=== PATIENT | male | born 1995 | race Caucasian/White ===

== ENCOUNTER 2017-01-21 20:37 | Emergency (ER) | payer BC, OTHER ==
[~2017-01-21] VITALS: Ht 182.9 cm; Wt 85.3 kg
[2017-01-21 20:47] VITALS: BP 111/75
--- NOTE | 2017-01-21 20:47 | PHYS DOC ---
Past History Past Medical History: No Pertinent History Past Surgical History: No Surgical History Smoking: Cigarettes Alcohol Use: Occasionally Drug Use: None Adult General Chief Complaint Chief Complaint: COUGH HPI HPI Patient is a 22 year old male who presents with sore throat and cough. The cough was today sore throat was just prior to arrival. States her hurts to swallow. No drooling however. No known fever. He does smoke tobacco. No Recent travel. Review of Systems Review of Systems Constitutional: Denies fever or chills Eyes: Denies change in visual acuity, redness, or eye pain HENT: sinus drainage and sore throat. No change in voice Respiratory: non productive cough but no shortness of breath Cardiovascular: no chest pain GI: Denies abdominal pain, nausea, vomiting, bloody stools or diarrhea : Denies dysuria or hematuria Musculoskeletal: Denies back pain or joint pain Integument: Denies rash or skin lesions Neurologic: Denies headache, focal weakness or sensory changes Allergies Allergies Allergies Coded Allergies Type Severity Reaction Last Updated Verified No Known Drug Allergies 02/11/16 No Physical Exam Physical Exam Constitutional: Well developed, well nourished, no acute distress, non-toxic appearance. HENT: Normocephalic, atraumatic, bilateral external ears normal, oropharynx moist, tonsillar hypertrophy; no exudate but diffuse erythema. nose normal. Eyes: PERRLA, EOMI, conjunctiva normal, no discharge. Neck: Normal range of motion, no tenderness, supple, no stridor. Cervical adenopathy; min. tenderness. No fluctuance or masses. Cardiovascular:Heart rate regular rhythm, no murmur Lungs & Thorax: Bilateral breath sounds clear to auscultation Skin: Warm, dry, no erythema, no rash. Extremities: No tenderness, no cyanosis, no clubbing, ROM intact, no edema. Neurologic: Alert and oriented X 3, normal motor function, normal sensory function, no focal deficits noted. Psychologic: Affect normal, judgement normal, mood normal. Current Patient Data Vital Signs BP 111/75, P 71, sat 98%, T 97.9 Course & Med Decision Making Course & Med Decision Making Patient with hyperemic tonsils and hypertrophy. Will cover for strep. Khoaon Disclaimer Khoaon Disclaimer This chart was dictated in whole or in part using Voice Recognition software in a busy, high-work load, and often noisy Emergency Department environment. It may contain unintended and wholly unrecognized errors or omissions. Departure Departure: Impression: Primary Impression: Pharyngitis Additional Impression: Cough Disposition: 01 HOME, SELF-CARE Condition: GOOD Referrals: PCP,NO (PCP) Scripts Amoxicillin (AMOXICILLIN) 500 Mg Capsule 1 CAP PO TID, #30 CAP Prov: MARILUZ NEGRETE MD 01/21/17 Problem Qualifiers MARILUZ NEGRETE MD January 21, 2017 20:47
[2017-01-21] MEDS ORDERED: AMOX500C PO (21:00)
== END 2017-01-21 21:07 | disposition home or self-care (01) ==
LOC: ER 20:37
DX: J02.9 Acute pharyngitis, unspecified (principal); R05 Cough; F17.210 Nicotine dependence, cigarettes, uncomplicated
CPT/HCPCS: 99283

== ENCOUNTER 2017-02-01 02:54 | Emergency (ER) | payer BC, OTHER ==
[~2017-02-01] VITALS: Ht 182.9 cm; Wt 81.6 kg
[~2017-02-01 02:54] MED LIST: AMOX500C PO
[2017-02-01 03:00] VITALS: BP 131/71
[2017-02-01] MEDS ORDERED: FLUT9.9S NS (03:20)
[2017-02-01] MEDS ORDERED: GUAI1TBM10 PO (03:20)
[2017-02-01] MEDS ORDERED: AZIT250T6 PO (03:20)
--- NOTE | 2017-02-01 03:20 | PHYS DOC ---
Past History Additional Past Medical Histor: ADHD, ADD, aspiration syndrome, OCD Past Surgical History: No Surgical History Smoking: Cigarettes Alcohol Use: None Drug Use: None Adult General Chief Complaint Chief Complaint: EARACHE/EAR PAIN [facility] HPI Patient is a pleasant 22-year-old male with history of smoking less than a pack a day, ADHD, ADD and aspiration no OCD who presents with 3-4 history of decreased hearing out of the right ear. He notes over the last several weeks has had a nonproductive cough with rhinorrhea. Who has developed some decreased hearing out of the right ear without drainage but has had some pressure. He admits to no nasal facial pain but has had clear nasal discharge. Patient denies any fevers, headache, neck pain, recent trauma, travel outside the country, or recent antibiotics. Patient does not have any reported trauma to the ear does not swim or report any complete hearing loss. Patient also denies any nausea vomiting or sensory spinning. Review of Systems Review of Systems Constitutional: Denies fever or chills [] Eyes: Denies change in visual acuity, redness, or eye pain [] HENT: He denies sore throat but has complained of nasal congestion and right ear pain. Respiratory: Planes of cough Cardiovascular: No additional information not addressed in HPI [] GI: Denies abdominal pain, nausea, vomiting, bloody stools or diarrhea [] : Denies dysuria or hematuria [] Musculoskeletal: Denies back pain or joint pain [] Integument: Denies rash or skin lesions [] Neurologic: Denies headache, focal weakness or sensory changes [] Allergies Allergies Allergies Coded Allergies Type Severity Reaction Last Updated Verified No Known Drug Allergies 02/11/16 No Physical Exam Physical Exam Constitutional: Well developed, well nourished, no acute distress, non-toxic appearance. [] HENT: Normocephalic, atraumatic, bilateral external ears normal, oropharynx moist, no oral exudates, clear nasal discharge. Noted serous otitis media with bulging eardrum on the right when hearing tested patient still has negative Guo's test. Eyes: PERRLA, EOMI, conjunctiva normal, no discharge. [] Neck: Normal range of motion, no tenderness, supple, no stridor. [] Cardiovascular:Heart rate regular rhythm, no murmur [] Lungs & Thorax: Bilateral breath sounds clear to auscultation [] Skin: Warm, dry, no erythema, no rash. [] Neurologic: Alert and oriented X 3, normal motor function, normal sensory function, no focal deficits noted. [] Psychologic: Affect normal, judgement normal, mood normal. [] EKG EKG [] Radiology/Procedures Radiology/Procedures [] Course & Med Decision Making Course & Med Decision Making Pertinent Labs and Imaging studies reviewed. (See chart for details) [] Dragon Disclaimer Dragon Disclaimer This chart was dictated in whole or in part using Voice Recognition software in a busy, high-work load, and often noisy Emergency Department environment. It may contain unintended and wholly unrecognized errors or omissions. Departure Departure: Impression: Primary Impression: Otitis media Disposition: HOME, SELF-CARE Condition: STABLE Referrals: PCP,NO (PCP) Patient Instructions: Hearing Loss, Otitis Media, Adult Additional Instructions: Please follow-up with your primary care doctor in the next 12-24 hours if symptoms continue. Please return for any increasing pain or drainage from the ear or increased hearing loss despite treatment. Please stop smoking if he can. I would advise that you follow-up with your primary care doctor to help with your smoking cessation issues. Scripts Guaifenesin/Dextromethorphan (MUCINEX DM ER 1,200-60 MG TAB) 1 Each Tbmp.12hr 1 TAB PO BID, #20 TAB 1 Refill Prov: MINGO CARMICHAEL MD 02/01/17 Fluticasone Propionate (Flonase Allergy Relief) 9.9 Ml [place].susp 2 SPRAYS NS DAILY for 7 Days, BOTTLE Prov: MINGO CARMICHAEL MD 02/01/17 Azithromycin (AZITHROMYCIN TABLET) 250 Mg Tablet 250 MG PO DAILY for ANTI-BIOTIC for 5 Days, #5 TAB 0 Refills Please take 2 times the first day Please take one tablet day 2 through 5. Prov: MINGO CARMICHAEL MD 02/01/17 IMNGO CAMRICHAEL MD February 01, 2017 03:20
[2017-02-01] MEDS ORDERED: guaiFENesin DM 600/30MG 1 TAB TAB.ER.12H PO ONE (03:28)
[2017-02-01] MEDS ORDERED: AZITHROMYCIN 250 MG TABLET. PO ONE (04:00)
[2017-02-01] MEDS ORDERED: guaiFENesin DM 600/30MG 1 TAB TAB.ER.12H PO SCH (09:00)
== END 2017-02-01 03:33 | disposition home or self-care (01) ==
LOC: ER 02:54
DX: H66.91 Otitis media, unspecified, right ear (principal); F42.9 Obsessive-compulsive disorder, unspecified; F90.9 Attention-deficit hyperactivity disorder, unspecified type; F17.210 Nicotine dependence, cigarettes, uncomplicated
CPT/HCPCS: 99283; J0456

== ENCOUNTER 2017-02-09 21:32 | Emergency (ER) | payer BC, OTHER ==
[~2017-02-09] VITALS: Ht 182.9 cm; Wt 81.6 kg
[2017-02-09 21:32] VITALS: BP 111/61
[~2017-02-09 21:32] MED LIST changes: +AZIT250T6 PO; +FLUT9.9S NS; +GUAI1TBM10 PO
[2017-02-09] MEDS ORDERED: PRED50TA PO (22:20)
--- NOTE | 2017-02-09 22:23 | PHYS DOC ---
Past History Additional Past Medical Histor: ADHD, ADD, aspiration syndrome, OCD Past Surgical History: Other Smoking: Cigarettes Alcohol Use: Rarely Drug Use: None Adult General Chief Complaint Chief Complaint: FOOT INJURY PAIN HPI HPI Patient is a 22 year old male who presents with poison dick to his left foot on the top. Patient states he's had increased itching and a rash to the top of his foot for the past day. Patient states he does walk outside barefoot in his backyard and has had poison dick present. Patient denies any other symptoms. Patient denies any chest pain shortness of breath. Patient denies any fevers. Pertinent exam findings: Vesicular rash to the top of the left foot consistent with a contact dermatitis ED course: Patient was seen and evaluated and 10 mg Decadron IM were ordered and patient was discharged home with a prescription for prednisone MDM: After reviewing the chart, CC/HPI/PMH, physical exam, do not believe the patient has a life-threatening rash warranting further workup and/or admission at this time. I believe the patient's visit exam is consistent with poison dick and will give the patient shot of steroids in the emergency room send him home on a short course of steroids. Explained to the patient to watch for signs of infection and to follow-up with his family and next one to 2 days. She is stable for discharge Additional verbal discharge instructions were provided to the patient and that if symptoms get worse or any new symptoms arise that are worrisome to the patient he is to return to the emergency room immediately Review of Systems Review of Systems GEN: Denies fevers, chills, sweats HEENT: Denies blurred vision, sore throat CV: Denies chest pain RESP: Denies shortness of air, cough GI: Denies n/v/d NEURO: Denies confusion, dizziness MSK: Denies weakness, joint pain/swelling Skin: Rash to the top the left foot Allergies Allergies Allergies Coded Allergies Type Severity Reaction Last Updated Verified No Known Drug Allergies 02/11/16 No Physical Exam Physical Exam GEN.: No apparent distress. Alert and oriented. HEENT: Head is normocephalic, atraumatic NECK: Supple. LUNGS: CTAB. HEART: RRR, S1, S2 present. Peripheral pulses intact ABDOMEN: Soft, nontender. Positive bowel sounds. EXTREMITIES: Without any cyanosis. NEUROLOGIC: Normal speech, normal tone PSYCHIATRIC: Normal affect, normal mood. SKIN: Vesicular rash to the top of the left foot consistent with a contact dermatitis EKG EKG [] Radiology/Procedures Radiology/Procedures [] Course & Med Decision Making Course & Med Decision Making Pertinent Labs and Imaging studies reviewed. (See chart for details) [] Dragon Disclaimer Dragon Disclaimer This chart was dictated in whole or in part using Voice Recognition software in a busy, high-work load, and often noisy Emergency Department environment. It may contain unintended and wholly unrecognized errors or omissions. Departure Departure: Impression: Primary Impression: Poison dick dermatitis Disposition: HOME, SELF-CARE Condition: IMPROVED Referrals: PCP,FLY (PCP) Patient Instructions: Contact Dermatitis, [id number] Additional Instructions: Please follow up with her family doctor next 1-2 days, please wash all clothes Scripts Prednisone (PREDNISONE) 50 Mg Tablet 50 MG PO DAILY for 5 Days, #5 TAB Prov: HEMA GUTIÉRREZ DO 02/09/17 HEMA GUTIÉRREZ DO Feb 09, 2017 22:23
[2017-02-09] MEDS ORDERED: DEXAMETHASONE SOD PHOS 10 MG/ML VIAL IM ONE (22:30)
== END 2017-02-09 22:27 | disposition home or self-care (01) ==
LOC: ER 21:32
DX: L23.7 Allergic contact dermatitis due to plants, except food (principal); F42.9 Obsessive-compulsive disorder, unspecified; F17.210 Nicotine dependence, cigarettes, uncomplicated; F90.9 Attention-deficit hyperactivity disorder, unspecified type
CPT/HCPCS: 96372; 99283; J1100

== ENCOUNTER → 2017-02-10 | Outpatient (CLI) | payer BC, OTHER ==
[2017-02-09 21:32] VITALS: BP 111/61
[~2017-02-10] MED LIST changes: +PRED50TA PO
--- NOTE | 2017-02-10 10:04 | RAD ---
Indication lower abdominal pain. Diarrhea. Supine and upright films of the abdomen were obtained. The abdominal gas pattern is normal. No organomegaly or abnormal calculi are seen. There is no evidence of free air. The lung bases are clear. IMPRESSION: Normal plain films of the abdomen
== END | disposition home or self-care (01) ==
LOC: DXRADRC 09:31
PROVIDERS: ATTEND Physician Assistant
DX: R10.30 Lower abdominal pain, unspecified (principal); R19.7 Diarrhea, unspecified
CPT/HCPCS: 74020

== ENCOUNTER → 2017-02-12 | Outpatient (CLI) | payer BC, OTHER ==
[2017-02-09 21:32] VITALS: BP 111/61
--- NOTE | 2017-02-12 10:17 | RAD ---
Abdominal ultrasound, 02/12/2017: History: Abdominal pain and diarrhea The gallbladder is within normal limits in size. There is no sonographic evidence of cholelithiasis. The gallbladder pemberton are not thickened. No bile duct dilatation is seen. The visualized portions of the liver, pancreas and both kidneys are unremarkable. The spleen is at the upper limits of normal in size measuring 13.7 cm in craniocaudad extent. A similar appearance was present on the CT study of 10/31/2016. The abdominal aorta and inferior vena cava show no abnormality. No free fluid is evident in the abdomen. IMPRESSION: 1. Borderline splenomegaly. 2. The abdominal ultrasound is otherwise unremarkable.
== END | disposition home or self-care (01) ==
LOC: US 08:57
PROVIDERS: ATTEND Physician Assistant
DX: R10.9 Unspecified abdominal pain (principal); R19.7 Diarrhea, unspecified; R16.1 Splenomegaly, not elsewhere classified
CPT/HCPCS: 76700

== ENCOUNTER 2017-03-01 00:23 | Emergency (ER) | payer BC, OTHER ==
[~2017-03-01] VITALS: Ht 182.9 cm; Wt 78.9 kg
[2017-03-01 00:25] VITALS: BP 140/73
--- NOTE | 2017-03-01 00:41 | PHYS DOC ---
Past History Past Medical History: Asthma, Other Additional Past Medical Histor: ADHD, ADD, Asperger's syndrome, OCD Past Surgical History: Other Smoking: Cigarettes Alcohol Use: Rarely Drug Use: None Adult General Chief Complaint Chief Complaint: ABDOMINAL PAIN [facility] HPI Impression is a pleasant 22-year-old male with history of Orla syndrome, OCD and ADHD presents with abdominal pain is plaguing him for the last 4 weeks. The pain is described as crampy dull and achy in the left lower right lower quadrants that typically begins after he eats food. He describes as cramping that does not radiate to his back or his legs does not cause any pain with urination, penile discharge or constipation. He typically has loose stool. He says he has about 6-8 episodes a day he has not lost any weight with the stool and he has not had any blood in his stool. He denies any sick contacts, travel outside the country, recent anabiotic use, or prior history of the same. He does tell me that he's been under the care of a GI PA he has not had a colonoscopy or EGD despite having symptoms for last 4 weeks. He denies any night sweats, denies any consumption of raw foods like oysters or raw fish. He also denies handling poultry or reptiles. Patient was at work type for symptoms began becoming so severe that he had come to the ER. He drove himself. Review of Systems Review of Systems Constitutional: Denies fever or chills [] Eyes: Denies change in visual acuity, redness, or eye pain [] HENT: Denies nasal congestion or sore throat [] Respiratory: Denies cough or shortness of breath [] Cardiovascular: No additional information not addressed in HPI [] GI: He does complain of abdominal pain with nausea without vomiting complains of diarrhea without blood or mucus in the stool. : Denies dysuria or hematuria [] Musculoskeletal: Denies back pain or joint pain [] Integument: Denies rash or skin lesions [] Neurologic: Denies headache, focal weakness or sensory changes [] Endocrine: Denies polyuria or polydipsia [] Current Medications Current Medications Current Medications Medications (Trade) Dose Ordered Sig/Vicki Start Time Stop Time Status Last Admin Dose Admin Famotidine (Pepcid) 20 mg 1X ONCE 03/01/17 00:30 03/01/17 00:31 UNV Ketorolac Tromethamine (Toradol) 30 mg 1X ONCE 03/01/17 00:30 03/01/17 00:31 UNV Ondansetron HCl (Zofran) 4 mg 1X ONCE 03/01/17 00:30 03/01/17 00:31 UNV Sodium Chloride (Normal Saline Flush) 10 ml QSHIFT PRN 03/01/17 00:30 UNV Allergies Allergies Allergies Coded Allergies Type Severity Reaction Last Updated Verified No Known Drug Allergies 02/11/16 No Physical Exam Physical Exam Constitutional: Well developed, well nourished, a shows obvious anxious and uncomfortable but nontoxic in appearance HENT: Normocephalic, atraumatic, bilateral external ears normal, oropharynx moist, no oral exudates, nose normal. [] Eyes: PERRLA, EOMI, conjunctiva normal, no discharge. [] Neck: Normal range of motion, no tenderness, supple, no stridor. [] Cardiovascular:Heart rate regular rhythm, no murmur [] Lungs & Thorax: Bilateral breath sounds clear to auscultation [] Abdomen: Bowel sounds are reduced but his abdomen is soft he does have some tenderness in the right left lower quadrant. There is no guarding rebound organomegaly or McBurney's or Hirsch's tenderness to palpation Skin: Warm, dry, no erythema, no rash. [] Back: No tenderness, no CVA tenderness. [] Extremities: No tenderness, no cyanosis, no clubbing, ROM intact, no edema. [] Neurologic: Alert and oriented X 3, normal motor function, normal sensory function, no focal deficits noted. [] Psychologic: He seems anxious to me Current Patient Data Lab Results Laboratory Tests Test 03/01/17 00:40 White Blood Count 12.2 x10^3/uL (4.0-11.0) H Red Blood Count 5.78 x10^6/uL (4.30-5.70) H Hemoglobin 16.6 g/dL (13.0-17.5) Hematocrit 47.2 % (39.0-53.0) Mean Corpuscular Volume 82 fL (79-100) Mean Corpuscular Hemoglobin 29 pg (25-35) Mean Corpuscular Hemoglobin Concent 35 g/dL (31-37) Red Cell Distribution Width 13.0 % (11.5-14.5) Platelet Count 201 x10^3/uL (140-400) Neutrophils (%) (Auto) 61 % (31-73) Lymphocytes (%) (Auto) 29 % (24-48) Monocytes (%) (Auto) 7 % (0-9) Eosinophils (%) (Auto) 3 % (0-3) Basophils (%) (Auto) 1 % (0-3) Neutrophils # (Auto) 7.4 x10^3uL (1.8-7.7) Lymphocytes # (Auto) 3.5 x10^3/uL (1.0-4.8) Monocytes # (Auto) 0.8 x10^3/uL (0.0-1.1) Eosinophils # (Auto) 0.4 x10^3/uL (0.0-0.7) Basophils # (Auto) 0.1 x10^3/uL (0.0-0.2) Sodium Level 141 mmol/L (136-145) Potassium Level 3.5 mmol/L (3.5-5.1) Chloride Level 103 mmol/L (98-107) Carbon Dioxide Level 25 mmol/L (21-32) Anion Gap 13 (6-14) Blood Urea Nitrogen 10 mg/dL (8-26) Creatinine 0.9 mg/dL (0.7-1.3) Estimated GFR (Cockcroft-Gault) 103.7 BUN/Creatinine Ratio 11 (6-20) Glucose Level 104 mg/dL (70-99) H Calcium Level 9.2 mg/dL (8.5-10.1) Total Bilirubin 0.5 mg/dL (0.2-1.0) Aspartate Amino Transferase (AST) < 5 U/L (15-37) L Alanine Aminotransferase (ALT) 9 U/L (16-63) L Alkaline Phosphatase 51 U/L (46-116) Total Protein 8.2 g/dL (6.4-8.2) Albumin 4.8 g/dL (3.4-5.0) Albumin/Globulin Ratio 1.4 (1.0-1.7) Lipase 117 U/L (73-393) Laboratory Tests Test 03/01/17 00:40 White Blood Count 12.2 x10^3/uL (4.0-11.0) H Red Blood Count 5.78 x10^6/uL (4.30-5.70) H Hemoglobin 16.6 g/dL (13.0-17.5) Hematocrit 47.2 % (39.0-53.0) Mean Corpuscular Volume 82 fL (79-100) Mean Corpuscular Hemoglobin 29 pg (25-35) Mean Corpuscular Hemoglobin Concent 35 g/dL (31-37) Red Cell Distribution Width 13.0 % (11.5-14.5) Platelet Count 201 x10^3/uL (140-400) Neutrophils (%) (Auto) 61 % (31-73) Lymphocytes (%) (Auto) 29 % (24-48) Monocytes (%) (Auto) 7 % (0-9) Eosinophils (%) (Auto) 3 % (0-3) Basophils (%) (Auto) 1 % (0-3) Neutrophils # (Auto) 7.4 x10^3uL (1.8-7.7) Lymphocytes # (Auto) 3.5 x10^3/uL (1.0-4.8) Monocytes # (Auto) 0.8 x10^3/uL (0.0-1.1) Eosinophils # (Auto) 0.4 x10^3/uL (0.0-0.7) Basophils # (Auto) 0.1 x10^3/uL (0.0-0.2) Sodium Level 141 mmol/L (136-145) Potassium Level 3.5 mmol/L (3.5-5.1) Chloride Level 103 mmol/L (98-107) Carbon Dioxide Level 25 mmol/L (21-32) Anion Gap 13 (6-14) Blood Urea Nitrogen 10 mg/dL (8-26) Creatinine 0.9 mg/dL (0.7-1.3) Estimated GFR (Cockcroft-Gault) 103.7 BUN/Creatinine Ratio 11 (6-20) Glucose Level 104 mg/dL (70-99) H Calcium Level 9.2 mg/dL (8.5-10.1) Total Bilirubin 0.5 mg/dL (0.2-1.0) Aspartate Amino Transferase (AST) < 5 U/L (15-37) L Alanine Aminotransferase (ALT) 9 U/L (16-63) L Alkaline Phosphatase 51 U/L (46-116) Total Protein 8.2 g/dL (6.4-8.2) Albumin 4.8 g/dL (3.4-5.0) Albumin/Globulin Ratio 1.4 (1.0-1.7) Lipase 117 U/L (73-393) EKG EKG [] Radiology/Procedures Radiology/Procedures [address] [place] [id number] IMAGING REPORT Signed PATIENT: YAS MENDEZ ACCOUNT: [id number] : 1995 LOCATION: ER AGE: 22 SEX: M EXAM STATUS: REG ER ORD. PHYSICIAN: MINGO CARMICHAEL MD REASON: ABDOMINAL PAIN PROCEDURE: CT ABD PELV W/ IV CONTRST ONLY EXAM: Abdomen and pelvis CT with intravenous contrast. HISTORY: Left lower quadrant pain for one month. TECHNIQUE: Computed tomographic images of the abdomen and pelvis were obtained following the administration of 75 cc of Omni 300 intravenous contrast. Multiplanar reformatting was performed. PQRS compliance statement: One or more of the following individualized dose reduction techniques were utilized for this examination: 1. Automated exposure control 2. Adjustment of the mA and/or kV according to patient size 3. Use of iterative reconstruction technique COMPARISON: October 31, 2016. FINDINGS: The lung bases demonstrate no acute finding. The liver, spleen, gallbladder, pancreas, adrenal glands and bilateral kidneys demonstrate no focal abnormality. The GI tract demonstrates no dilated bowel loops to suggest obstruction. The appendix is not definitively seen, although no soft tissue stranding or free fluid is present within the right lower quadrant. The urinary bladder is grossly unremarkable. No intra-abdominal or pelvic free fluid, free air or significant lymphadenopathy is seen. Aorta is normal in caliber. Overlying soft tissues and visualized osseous structures demonstrate no acute or suspicious interval change. IMPRESSION: No acute intra-abdominal or pelvic process. Electronically signed by: Dandre Bartholomew MD (03/01/2017 2:12 AM) DICTATED AND SIGNED BY: DANDRE BARTHOLOMEW MD DATE: 03/01/17 0207 CC: MINGO CARMICHAEL MD; HASMUKH VARGHESE ~ [] Course & Med Decision Making Course & Med Decision Making Pertinent Labs and Imaging studies reviewed. (See chart for details) reviewed nursing notes, complaint and vital signs. I will he began with a set of abdominal labs include lipase, CMP CBC and urinalysis. I will also do a CT of the abdomen pelvis with IV contrast given his inability to tolerate by mouth medication secondary to his nausea he'll be offered fluids, antiemetics and limited pain medications that are nonnarcotic basis. Patient tells me that their symptoms given during CC are improved. We reviewed labs and radiology reports with patient time is now 2:28 AM. Patient is a mildly elevated white count for no apparent reason. A CAT scan will be referred back to his GI doctor. We'll offer him something for his crampy abdominal pain and a stool bulking agent up with his loose stools and encouraged follow-up with his GI doctor for colonoscopy and screening for irritable bowel syndrome Crohn's and ulcerative colitis. There is no evidence on CAT scan of regional enteritis Urinalysis dip read by me negative for leuk esterase, nitrates, white blood cells, bacteria. Impression Abdominal pain, diarrhea Disposition: PCP follow-up with GI referral for a screening colonoscopy [] Dragon Disclaimer Dragon Disclaimer This chart was dictated in whole or in part using Voice Recognition software in a busy, high-work load, and often noisy Emergency Department environment. It may contain unintended and wholly unrecognized errors or omissions. Departure Departure: Impression: Primary Impression: Abdominal pain Additional Impression: Diarrhea Disposition: 01 HOME, SELF-CARE Condition: IMPROVED Referrals: HASMUKH VARGHESE (PCP) Patient Instructions: Abdominal Pain (Nonspecific), Chronic Diarrhea, Diet for Diarrhea, Adult Additional Instructions: Please follow-up with her regular doctor for referral to GI for continued evaluation of your diarrheal illness. I suggest that you used to dilate prescribed and the medications to help you with stool bulking. Return for any new or increasing symptoms or given any questions or concerns Scripts Ondansetron (ZOFRAN ODT) 8 Mg Tab.rapdis 4 MG PO TID for 5 Days Prov: MINGO CARMICHAEL MD 03/01/17 Diphenoxylate Hcl/Atropine (LOMOTIL TABLET) 1 Each Tablet 1 TAB PO QID, #20 TAB Prov: MINGO CARMICHAEL MD 03/01/17 Dicyclomine Hcl (BENTYL) 10 Mg Capsule 1 CAP PO TID, #15 CAP.EC Prov: MINGO CARMICHAEL MD 03/01/17 Problem Qualifiers MINGO CARMICHAEL MD Mar 01, 2017 00:41
[2017-03-01] MEDS ORDERED: KETOROLAC 60 MG/2 ML VIAL. IM ONE (00:49)
[2017-03-01] MEDS ORDERED: IV NORMAL SALINE 1,000ML 1,000 ML ONE (00:49)
[2017-03-01] MEDS ORDERED: FAMOTIDINE 20 MG/2 ML VIAL ONE (00:50)
[2017-03-01] MEDS ORDERED: ONDANSETRON PF 4 MG/2 ML VIAL. ONE (00:52)
[2017-03-01] MEDS ORDERED: KETOROLAC 30 MG/ML VIAL. ONE (00:52)
[2017-03-01] MEDS: 0.9 % SODIUM CHLORIDE 10 ML DISP.SYRIN. IV PRN ×2 (00:54→01:49)
[2017-03-01 00:57] LABS: BASO # 0.1 x10^3/uL (0.0-0.2); BASO % 1 % (0-3); EOS # 0.4 x10^3/uL (0.0-0.7); EOS % 3 % (0-3); HEMATOCRIT 47.2 % (39.0-53.0); HEMOGLOBIN 16.6 g/dL (13.0-17.5); LYMPH # 3.5 x10^3/uL (1.0-4.8); LYMPH % 29 % (24-48); MEAN CORPUSCULAR HEMOGLOBIN 29 pg (25-35); MEAN CORPUSCULAR HGB CONC 35 g/dL (31-37); MEAN CORPUSCULAR VOLUME 82 fL (79-100); MONO # 0.8 x10^3/uL (0.0-1.1); MONO % 7 % (0-9); NEUT # 7.4 x10^3uL (1.8-7.7); NEUT % 61 % (31-73); PLATELET COUNT 201 x10^3/uL (140-400); RED BLOOD COUNT 5.78 x10^6/uL (4.30-5.70); WHITE BLOOD COUNT 12.2 x10^3/uL (4.0-11.0)
[2017-03-01] MEDS ORDERED: IOHEXOL 300 MG/ML 75 ML VIAL. IV ONE (01:00)
[2017-03-01] MEDS ORDERED: FAMOTIDINE 20 MG/2 ML VIAL IVP ONE (01:00)
[2017-03-01] MEDS ORDERED: KETOROLAC 30 MG/ML VIAL. IV ONE (01:00)
[2017-03-01] MEDS ORDERED: CONTRAST GIVEN MC PRN (01:00)
[2017-03-01] MEDS ORDERED: IV NORMAL SALINE 1,000ML 1,000 ML IV SCH (01:00)
[2017-03-01] MEDS ORDERED: ONDANSETRON PF 4 MG/2 ML VIAL. IV ONE (01:00)
[2017-03-01 01:08] LABS: ALBUMIN 4.8 g/dL (3.4-5.0); ALBUMIN/GLOBULIN RATIO 1.4 (1.0-1.7); ALK PHOS 51 U/L (46-116); ALT (SGPT) 9 U/L (16-63); ANION GAP 13 (6-14); BLOOD UREA NITROGEN 10 mg/dL (8-26); BUN/CREATININE RATIO 11 (6-20); CALCIUM 9.2 mg/dL (8.5-10.1); CARBON DIOXIDE 25 mmol/L (21-32); CHLORIDE 103 mmol/L (98-107); CREATININE 0.9 mg/dL (0.7-1.3); GFR 103.7; GLUCOSE 104 mg/dL (70-99); LIPASE 117 U/L (73-393); POTASSIUM 3.5 mmol/L (3.5-5.1); SODIUM 141 mmol/L (136-145); TOTAL BILIRUBIN 0.5 mg/dL (0.2-1.0); TOTAL PROTEIN 8.2 g/dL (6.4-8.2)
[2017-03-01 01:13] LABS: AST (SGOT) < 5 U/L (15-37)
--- NOTE | 2017-03-01 02:15 | RAD ---
EXAM: Abdomen and pelvis CT with intravenous contrast. HISTORY: Left lower quadrant pain for one month. TECHNIQUE: Computed tomographic images of the abdomen and pelvis were obtained following the administration of 75 cc of Omni 300 intravenous contrast. Multiplanar reformatting was performed. PQRS compliance statement: One or more of the following individualized dose reduction techniques were utilized for this examination: 1. Automated exposure control 2. Adjustment of the mA and/or kV according to patient size 3. Use of iterative reconstruction technique COMPARISON: October 31, 2016. FINDINGS: The lung bases demonstrate no acute finding. The liver, spleen, gallbladder, pancreas, adrenal glands and bilateral kidneys demonstrate no focal abnormality. The GI tract demonstrates no dilated bowel loops to suggest obstruction. The appendix is not definitively seen, although no soft tissue stranding or free fluid is present within the right lower quadrant. The urinary bladder is grossly unremarkable. No intra-abdominal or pelvic free fluid, free air or significant lymphadenopathy is seen. Aorta is normal in caliber. Overlying soft tissues and visualized osseous structures demonstrate no acute or suspicious interval change. IMPRESSION: No acute intra-abdominal or pelvic process. Electronically signed by: Delaney Bartholomew MD (03/01/2017 2:12 AM)
[2017-03-01] MEDS ORDERED: ONDA8TAB12 PO (02:40)
[2017-03-01] MEDS ORDERED: DIPH1TAB PO (02:40)
[2017-03-01] MEDS ORDERED: DICY10CA53 PO (02:40)
[2017-03-01 05:59] LABS: BILIRUBIN,URINE NEG (NEG); CLARITY,URINE CLEAR; COLOR,URINE YELLOW; GLUCOSE,URINE NEG (NEG)
[2017-03-01 06:00] LABS: BACTERIA,URINE 0 /HPF (0-FEW); NITRITE,URINE NEG (NEG); RBC,URINE RARE /HPF (0-2); UROBILINOGEN,URINE 0.2 mg/dL (0.2 mg/dL); WBC,URINE 0 /HPF (0-4)
== END 2017-03-01 02:51 | disposition home or self-care (01) ==
LOC: ER 00:23
DX: R10.31 Right lower quadrant pain (principal); R10.32 Left lower quadrant pain; R19.7 Diarrhea, unspecified; R11.0 Nausea; J45.909 Unspecified asthma, uncomplicated; F42.9 Obsessive-compulsive disorder, unspecified; F84.5 Asperger's syndrome; F90.9 Attention-deficit hyperactivity disorder, unspecified type; F17.210 Nicotine dependence, cigarettes, uncomplicated
CPT/HCPCS: 36415; 74177; 80053; 81001; 83690; 85027; 96361; 96374; 96375; 99285; J1885; J2405; Q9967; S0028; J7030

== ENCOUNTER → 2017-04-15 | Outpatient (CLI) | payer BC, OTHER ==
[~2017-04-15] MED LIST changes: +DICY10CA53 PO; +DIPH1TAB PO; +ONDA8TAB12 PO
--- NOTE | 2017-04-15 10:18 | RAD ---
Small bowel follow-through study 04/15/2017 Clinical history: Abdominal pain and diarrhea for a few months. Technique: A small bowel follow-through study was performed under radiographic and intermittent fluoroscopic control. The total fluoroscopic time is 0.4 minutes. A single digital spot radiograph of the terminal ileum was obtained. Findings: Comparison is made to the patient's CT scan of the abdomen and pelvis dated 03/01/2017. An AP digital radiograph of the abdomen/pelvis was obtained as a tenon machine operator radiograph. This demonstrates a nonobstructive bowel gas pattern. A moderate amount of stool is seen throughout the colon. No radiopaque calculus is seen. The osseous structures are grossly intact. The mucosal structures of the duodenum, jejunum, ileum and terminal ileum is within normal limits. The small bowel transit time is within normal limits. The cecum is in its normal location within the right lower quadrant of the abdomen. There is no extrinsic mass effect upon the small bowel. Impression: Negative study.
== END | disposition home or self-care (01) ==
LOC: RAD 08:19
PROVIDERS: ATTEND Internal Medicine Gastroenterology
DX: R10.32 Left lower quadrant pain (principal); R19.7 Diarrhea, unspecified
CPT/HCPCS: 74250

== ENCOUNTER 2018-05-06 23:32 | Emergency (ER) | payer BC, OTHER ==
[~2018-05-06] VITALS: Ht 182.9 cm; Wt 81.6 kg
--- NOTE | 2018-05-07 | ED.ADGEN ---
Past History Past Medical History: Depression Additional Past Medical Histor: ADHD, ADD, Asperger's syndrome, OCD Past Surgical History: No Surgical History Smoking: Cigarettes Additional Smoking Information: 2 PPD smoker Alcohol Use: None Drug Use: None Adult General Chief Complaint Chief Complaint Chest pain HPI HPI Patient noted gradual onset of left upper quadrant/lower chest pain 3 days ago. Pains been constant, nonradiating, worse with movement and eating. He notes no shortness of breath. He's had no vomiting. He has chronic diarrhea which he's had for over a year which was worked up year ago with a negative colonoscopy and abdominal ultrasound. He denies any productive cough fevers. The patient smokes half pack of cigarettes per day and drinks caffeinated soda and energy drinks. Review of Systems Review of Systems Constitutional: Denies fever or chills Eyes: Denies change in visual acuity, redness, or eye pain HENT: Denies nasal congestion or sore throat Respiratory: Denies cough or shortness of breath Cardiovascular: With chest pain, no palpations GI: With LUQ abdominal pain, no nausea, vomiting or diarrhea : Denies dysuria or hematuria Musculoskeletal: Denies back pain or joint pain Integument: Denies rash or skin lesions Neurologic: Denies headache, focal weakness or sensory changes Endocrine: Denies polyuria or polydipsia All other systems were reviewed and found to be within normal limits, except as documented in this note. Current Medications Current Medications Current Medications Medications (Trade) Dose Ordered Sig/Vicki Start Time Stop Time Status Last Admin Dose Admin Multi-Ingredient Mouthwash/Gargle (Gi Cocktail) 20 ml 1X ONCE 05/07/18 00:30 05/07/18 00:31 DC 05/07/18 00:18 20 ML Pantoprazole Sodium (Protonix) 40 mg 1X ONCE 05/07/18 00:30 05/07/18 00:31 DC 05/07/18 00:18 40 MG Allergies Allergies Allergies Coded Allergies Type Severity Reaction Last Updated Verified No Known Drug Allergies 03/01/17 No Physical Exam Physical Exam Constitutional: Well developed, well nourished, no acute distress, non-toxic appearance. HENT: Normocephalic, atraumatic, bilateral external ears normal, oropharynx moist, no oral exudates, nose normal. Eyes: PERRLA, EOMI, conjunctiva normal, no discharge. Neck: Normal range of motion, no tenderness, supple, no stridor. Cardiovascular:Heart rate regular rhythm, no murmur Lungs & Thorax: Bilateral breath sounds clear to auscultation, no chest wall tenderness Abdomen: Bowel sounds normal, soft, with LUQ tenderness, no masses, no pulsatile masses. Skin: Warm, dry, no erythema, no rash. Back: No tenderness, no CVA tenderness. Extremities: No tenderness, no cyanosis, no clubbing, ROM intact, no edema. Neurologic: Alert and oriented X 3, normal motor function, normal sensory function, no focal deficits noted. Psychologic: Affect normal, judgement normal, mood normal. Current Patient Data Vital Signs Vital Signs Date Time Temp Pulse Resp B/P (MAP) Pulse Ox O2 Delivery O2 Flow Rate FiO2 05/07/18 00:55 72 125/65 (85) 96 Room Air 05/06/18 23:43 18 EKG EKG 00:04 ECG Normal sinus rhythm at 72 without acute changes and normal QRS morphology Radiology/Procedures Radiology/Procedures [address] [address] IMAGING REPORT Signed PATIENT: YAS MENDEZ ACCOUNT: [id number] : 1995 LOCATION: ER AGE: 23 SEX: M EXAM STATUS: REG ER ORD. PHYSICIAN: CHERI BAUER MD REASON: Chest pain, short of air x 3 days PROCEDURE: CHEST PA & LATERAL CHEST PA LATERAL History: Chest pain, short of air x 3 days Comparison: None. Findings: The cardiomediastinal silhouette is normal. Pulmonary vasculature is normal. The lungs are clear. No pleural effusion or pneumothorax is seen. There is no acute bone abnormality. IMPRESSION: No acute cardiopulmonary process. Electronically signed by: Aris Sanders MD (05/07/2018 2:49 AM) [facility] DICTATED AND SIGNED BY: ARIS SANDERS MD DATE: 05/07/18 0248 CC: HASMUKH VARGHESE; CHERI BAUER MD ~ Course & Med Decision Making Course & Med Decision Making Emergency Department Course Patient presents with complaints of chest pain for 3 days DDx-acute coronary syndrome, pulmonary embolism, pneumothorax, CHF, pneumonia, chest wall pain Patient was stable in the emergency department, improved after GI cocktail and Protonix with resolution of chest pain. LUQ pain resolved. PERC rule negative, doubt PE. ECG was unremarkable with normal QRS morphology and no acute injury pattern. Chest x-ray was unremarkable. His pain is likely secondary to GERD from caffeine intake. I advised the patient to stop smoking cigarettes and stop drinking caffeinated products. The patient will be given Mylanta and Protonix with PCP follow-up. Final Impression Final Impression Clinical Impression GERD Tobacco use disorder Maura Disclaimer Dragon Disclaimer This electronic medical record was generated, in whole or in part, using a voice recognition dictation system. Departure Departure: Impression: Primary Impression: GERD (gastroesophageal reflux disease) Additional Impression: Tobacco use disorder Disposition: HOME, SELF-CARE Condition: STABLE Referrals: EVAN DE LA CRUZ MD Follow-up tomorrow for further evaluation Patient Instructions: Diet for Gastroesophageal Reflux Disease, Adult, Easy-to- Read, Gastroesophageal Reflux Disease, Adult, [id number] Scripts Mag Hydrox/Al Hydrox/Simeth (MAALOX MAXIMUM STRENGTH SUSP) 355 Ml Oral.susp 15 ML PO QIDACHS for 20 Days, #355 ML Prov: CHERI BAUER MD 05/07/18 Pantoprazole Sodium (PROTONIX) 40 Mg Tablet.dr 1 TAB PO DAILY, #20 TAB 0 Refills Prov: CHERI BAUER MD 05/07/18 CHERI BAUER MD May 07, 2018 00:00
--- NOTE | 2018-05-07 00:07 | EKG ---
[address] [address] Test Date: 2018-05-07 Test Time: 00:00:48 Pat Name: YAS MENDEZ Department: Room: Gender: M Therapy Assistant: : 1995 Requested By: CHERI BAUER Order Number: [id number] Reading MD: Misael Quintanilla MD Measurements Intervals [place] Rate: 72 P: 41 AK: 156 QRS: 71 QRSD: 98 T: 44 QT: 364 QTc: 400 Interpretive Statements SINUS RHYTHM Electronically Signed On 05-11-2018 11:47:51 CDT by Misael Quintanilla MD
[2018-05-07] MEDS ORDERED: PANTOPRAZOLE 40 MG TABLET. PO ONE (00:30)
[2018-05-07] MEDS ORDERED: LIDO:MAALOX 1:1 20 ML SINGLE DOSE. PO ONE (00:30)
[2018-05-07] MEDS ORDERED: MAG355OR12 PO (00:39)
[2018-05-07] MEDS ORDERED: PANT40TA3 PO (00:39)
[2018-05-07 00:55] VITALS: BP 125/65
--- NOTE | 2018-05-07 02:53 | RAD ---
CHEST PA LATERAL History: Chest pain, short of air x 3 days Comparison: None. Findings: The cardiomediastinal silhouette is normal. Pulmonary vasculature is normal. The lungs are clear. No pleural effusion or pneumothorax is seen. There is no acute bone abnormality. IMPRESSION: No acute cardiopulmonary process. Electronically signed by: Aris Sanders MD (05/07/2018 2:49 AM) [facility]
== END 2018-05-07 01:00 | disposition home or self-care (01) ==
LOC: ER 23:32
DX: K21.9 Gastro-esophageal reflux disease without esophagitis (principal); F17.210 Nicotine dependence, cigarettes, uncomplicated; F42.9 Obsessive-compulsive disorder, unspecified; F84.5 Asperger's syndrome
CPT/HCPCS: 71046; 93005; 99284

== ENCOUNTER 2018-06-22 20:04 | Emergency (ER) | payer BC, OTHER ==
[~2018-06-22] VITALS: Ht 182.9 cm; Wt 81.6 kg
[~2018-06-22 20:04] MED LIST changes: +MAG355OR12 PO; +PANT40TA3 PO
[2018-06-22 20:05] VITALS: BP 133/65
[2018-06-22] MEDS ORDERED: NEOM10SO7 OT (20:29)
--- NOTE | 2018-06-22 20:29 | PHYS DOC ---
Past History Past Medical History: Depression Additional Past Medical Histor: ADHD, ADD, Asperger's syndrome, OCD Past Surgical History: No Surgical History Smoking: Cigarettes Alcohol Use: None Drug Use: None Adult General Chief Complaint Chief Complaint: EARACHE/EAR PAIN HPI HPI 23-year-old male with past medical history of Asperger's presents with report of bleeding from left ear. Patient reports he ended up cleaning his ears last night with a Q-tip. Patient denies pain. Patient does report some nasal congestion, sore throat, and reported nosebleed 3 days ago which is now resolved. Denies use of blood thinners. Denies other trauma. Denies fever or chills. Review of Systems Review of Systems Constitutional: Denies fever or chills [] Eyes: Denies change in visual acuity, redness, or eye pain [] HENT: Reports nasal congestion, epistaxis, bleeding from ear, and sore throat [] Respiratory: Denies cough or shortness of breath [] Cardiovascular: Denies chest pain or palpitations GI: Denies abdominal pain, nausea, vomiting, or diarrhea [] : Denies dysuria or hematuria [] Musculoskeletal: Denies back pain or joint pain [] Integument: Denies rash or skin lesions [] Neurologic: Denies headache, focal weakness or sensory changes [] All other systems were reviewed and found to be within normal limits, except as documented in this note. Allergies Allergies Allergies Coded Allergies Type Severity Reaction Last Updated Verified No Known Drug Allergies 03/01/17 No Physical Exam Physical Exam Constitutional: Well developed, well nourished, no acute distress, non-toxic appearance. [] HENT: Normocephalic, atraumatic, bilateral TMs clear, small abrasion noted at 6 o'clock position to proximal external ear canal, nasal congestion noted, pharynx erythematous consistent for postnasal drip, no active epistaxis appreciated. Eyes: Conjunctiva normal, no discharge. [] Cardiovascular: Heart rate regular rhythm, no murmur [] Lungs & Thorax: Bilateral breath sounds clear to auscultation [] Abdomen: Soft, no tenderness Skin: Warm, dry [] Neurologic: Alert and oriented X 3, normal motor function, normal sensory function, no focal deficits noted. [] Psychologic: Affect normal, judgement normal, mood normal. [] EKG EKG [] Radiology/Procedures Radiology/Procedures [] Course & Med Decision Making Course & Med Decision Making Patient presents with history of present illness and physical exam consistent for URI with small abrasion noted to left external ear. External ear is nonbleeding. Due to concern for infection we will empirically treat with antibiotic eardrops. Patient stable for discharge with outpatient follow-up with PCP. Discussed findings and plan with patient, who acknowledges understanding and agreement. Dragon Disclaimer Dragon Disclaimer This electronic medical record was generated, in whole or in part, using a voice recognition dictation system. Departure Departure: Impression: Primary Impression: URI (upper respiratory infection) Additional Impression: Abrasion of left ear canal Disposition: HOME, SELF-CARE Condition: STABLE Referrals: HASMUKH VARGHESE (PCP) Patient Instructions: Eardrops, Aopl-uy-Kshn, Upper Respiratory Infection, Adult, Zcfz-kl-Sutc Scripts Neomycin/Polymyxin B Sulf/Hc ([id number]-MK EAR SOLN) 10 Ml Solution 5 DROP OT TID for 5 Days, #1 BOTTLE To affected ear Prov: MATEO MONTAGUE DO 06/22/18 Problem Qualifiers Primary Impression: URI (upper respiratory infection) URI type: unspecified URI Qualified Codes: J06.9 - Acute upper respiratory infection, unspecified Additional Impression: Abrasion of left ear canal Encounter type: initial encounter Qualified Codes: S00.412A - Abrasion of left ear, initial encounter MATEO MONTAGUE DO Jun 22, 2018 20:29
[2018-06-22] MEDS ORDERED: DEXAMETHASONE 4 MG TABLET PO ONE (20:30)
== END 2018-06-22 20:50 | disposition home or self-care (01) ==
LOC: ER 20:04
DX: J06.9 Acute upper respiratory infection, unspecified (principal); S00.412A Abrasion of left ear, initial encounter; F84.5 Asperger's syndrome; F42.8 Other obsessive-compulsive disorder; F17.210 Nicotine dependence, cigarettes, uncomplicated; X58.XXXA Exposure to other specified factors, initial encounter; Y93.89 Activity, other specified; Y92.89 Other specified places as the place of occurrence of the external cause; Y99.8 Other external cause status
CPT/HCPCS: 99282

== ENCOUNTER 2018-12-30 23:08 | Emergency (ER) | payer BC, OTHER ==
[~2018-12-30] VITALS: Ht 182.9 cm; Wt 90.7 kg
[~2018-12-30 23:08] MED LIST changes: +NEOM10SO7 OT
[2018-12-30 23:13] VITALS: BP 121/65
--- NOTE | 2018-12-30 23:14 | ED.ADGEN ---
Past History Past Medical History: Depression, IBS Additional Past Medical Histor: ADHD, ADD, Asperger's syndrome, OCD Past Surgical History: No Surgical History Smoking: Cigarettes Alcohol Use: None Drug Use: None, Other (vape) Adult General Chief Complaint Chief Complaint ".. I ve been sick the last three days.. coughing so hard I puke.. and it got really bad mowing yards today.. 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 " HPI HPI Patient is a 23 year old male who presents with above hx and complaints of coughing, sore throat, fevers, malaise. Pt. does not get flu vaccination. No recent travel. No hx of seasonal allergies. Pt. denies hx of immunosuppression. Patient does smoke and Vape. Pt. has hx of Asperger's, ADHD, ADD, OCD. Patient normally follows with for psych issues and Dr. Jin for health maintenance. Patient does not take flu vaccination. Review of Systems Review of Systems Constitutional: History of fever or chills [] Eyes: Denies change in visual acuity, redness, or eye pain [] HENT: History of nasal congestion and sore throat [] Respiratory: History of cough and wheezing Cardiovascular: No additional information not addressed in HPI [] GI: Denies abdominal pain, nausea, vomiting, bloody stools or diarrhea [] : Denies dysuria or hematuria [] Musculoskeletal: Denies back pain or joint pain [] Integument: Denies rash or skin lesions [] Neurologic: Denies headache, focal weakness or sensory changes [] Endocrine: Denies polyuria or polydipsia [] All other systems were reviewed and found to be within normal limits, except as documented in this note. Family History Family History Noncontributory Current Medications Current Medications Current Medications Medications (Trade) Dose Ordered Sig/Vicki Start Time Stop Time Status Last Admin Dose Admin Albuterol Sulfate (Ventolin Hfa Inhaler) 2 puff 1X ONCE 12/30/18 23:45 12/30/18 23:46 DC 12/30/18 23:45 2 PUFF Ibuprofen (Motrin) 400 mg 1X ONCE 12/30/18 23:45 12/30/18 23:46 DC 12/30/18 23:58 400 MG Ondansetron HCl (Zofran Odt) 8 mg 1X ONCE 12/30/18 23:45 12/30/18 23:46 DC 12/30/18 23:56 8 MG Prednisone (Prednisone) 60 mg 1X ONCE 12/30/18 23:45 12/30/18 23:46 DC 12/30/18 23:58 60 MG Allergies Allergies Allergies Coded Allergies Type Severity Reaction Last Updated Verified No Known Drug Allergies 03/01/17 No Physical Exam Physical Exam Constitutional: Moderately acute distress, non-toxic appearance. [] HENT: Normocephalic, atraumatic, bilateral external ears normal, oropharynx moist, injected pharynx, no oral exudates, nose swollen turbinates and clear rhinorrhea.. []Poor dentition Eyes: PERRLA, EOMI, conjunctiva normal, no discharge. [] Neck: Normal range of motion, no tenderness, supple, no stridor. [] Cardiovascular:Heart rate regular rhythm, no murmur [] Lungs & Thorax: Bilateral breath sounds equal apex with scattered wheezes on auscultation [] Abdomen: Bowel sounds normal, soft, no tenderness, no masses, no pulsatile masses. [] Skin: Warm, dry, no erythema, no rash. [] Back: No tenderness, no CVA tenderness. [] Extremities: No tenderness, no cyanosis, no clubbing, ROM intact, no edema. [] Left antecubital space injected-recent blood draw Neurologic: Alert and oriented X 3, normal motor function, normal sensory function, no focal deficits noted. [] Psychologic: Affect anxious, judgement normal, mood normal. [] Current Patient Data Vital Signs Vital Signs Date Time Temp Pulse Resp B/P (MAP) Pulse Ox O2 Delivery O2 Flow Rate FiO2 12/30/18 23:13 99.6 87 18 98 Room Air Lab Results Laboratory Tests Test 12/30/18 23:25 12/30/18 23:35 Influenza Type A (Rapid) Negative (NEGATIVE) Influenza Type B (Rapid) Negative (NEGATIVE) Group A Streptococcus Rapid Negative (NEGATIVE) EKG EKG [] Radiology/Procedures Radiology/Procedures My interpretation chest x-ray shows no acute cardiopulmonary findings[] Course & Med Decision Making Course & Med Decision Making Pertinent Labs and Imaging studies reviewed. (See chart for details) Patient to take prednisone 50 mg a day for 5 days. Patient uses MDI 2 puffs 4 times a day. Patient may take Benadryl as needed for nasal drainage and coughing. Patient follow-up primary care. Patient return if any concerns. Patient strongly encouraged to quit smoking and vaping. [] Final Impression Final Impression 1. Bronchitis[] 2. Tobacco use 3. Viral syndrome 4 History of Asperger's, ADD, attention deficit disorder, and excessive compulsive disorder Dragon Disclaimer Dragon Disclaimer This electronic medical record was generated, in whole or in part, using a voice recognition dictation system. Discharge Summary Visit Information Final Diagnosis Problems Medical Problems: (1) Bronchitis Status: Acute (2) Viral syndrome Status: Acute Brief Hospital Course Allergies Allergies Coded Allergies Type Severity Reaction Last Updated Verified No Known Drug Allergies 03/01/17 No Vital Signs Vital Signs Date Time Temp Pulse Resp B/P (MAP) Pulse Ox O2 Delivery O2 Flow Rate FiO2 12/30/18 23:13 99.6 87 18 98 Room Air Lab Results Laboratory Tests Test 12/30/18 23:25 12/30/18 23:35 Influenza Type A (Rapid) Negative (NEGATIVE) Influenza Type B (Rapid) Negative (NEGATIVE) Group A Streptococcus Rapid Negative (NEGATIVE) Brief Hospital Course Mr. Sung is a 23 old male who presented with bronchitis, viral syndrome. Discharge Information Condition at Discharge: Improved, Stable Disposition/Orders: D/C to Home Dischare Medications Current Medications Prednisone (Prednisone) 60 mg 1X ONCE PO Last administered on 12/30/18at 23:58; Admin Dose 60 MG; Start 12/30/18 at 23:45; Stop 12/30/18 at 23:46; Status DC Ibuprofen (Motrin) 400 mg 1X ONCE PO Last administered on 12/30/18at 23:58; Admin Dose 400 MG; Start 12/30/18 at 23:45; Stop 12/30/18 at 23:46; Status DC Albuterol Sulfate (Ventolin Hfa Inhaler) 2 puff 1X ONCE INH Last administered on 12/30/18at 23:45; Admin Dose 2 PUFF; Start 12/30/18 at 23:45; Stop 12/30/18 at 23:46; Status DC Ondansetron HCl (Zofran Odt) 8 mg 1X ONCE PO Last administered on 12/30/18at 23:56; Admin Dose 8 MG; Start 12/30/18 at 23:45; Stop 12/30/18 at 23:46; Status DC Active Scripts Active Prednisone 50 Mg Tablet 50 Mg PO DAILY 5 Days Gxxbrkse-Koxpuyjbk-Gk Ear Soln (Neomycin/Polymyxin B Sulf/Hc) 10 Ml Solution 5 Drop OT TID 5 Days To affected ear Maalox Maximum Strength Susp (Mag Hydrox/Al Hydrox/Simeth) 355 Ml Oral.susp 15 Ml PO QIDACHS 20 Days Protonix (Pantoprazole Sodium) 40 Mg Tablet.dr 1 Tab PO DAILY Zofran Odt (Ondansetron) 8 Mg Tab.rapdis 4 Mg PO TID 5 Days Lomotil Tablet (Diphenoxylate Hcl/Atropine) 1 Each Tablet 1 Tab PO QID Bentyl (Dicyclomine Hcl) 10 Mg Capsule 1 Cap PO TID Prednisone 50 Mg Tablet 50 Mg PO DAILY 5 Days Mucinex Dm Er 1,200-60 Mg Tab (Guaifenesin/Dextromethorphan) 1 Each Tbmp.12hr 1 Tab PO BID Flonase Allergy Relief (Fluticasone Propionate) 9.9 Ml Callender.susp 2 Sprays NS DAILY 7 Days Azithromycin Tablet (Azithromycin) 250 Mg Tablet 250 Mg PO DAILY 5 Days Please take 2 times the first day Please take one tablet day 2 through 5. Dragon Disclaimer This chart was dictated in whole or in part using Voice Recognition software in a busy, high-work load, and often noisy Emergency Department environment. It may contain unintended and wholly unrecognized errors or omissions. FAIZA CÁRDENAS MD Dec 30, 2018 23:14
[2018-12-30] MEDS ORDERED: ALBUTEROL SULFATE 8GM INHALER. INH ONE (23:45)
[2018-12-30] MEDS ORDERED: predniSONE 20 MG TABLET PO ONE (23:45)
[2018-12-30] MEDS ORDERED: IBUPROFEN 400 MG TABLET. PO ONE (23:45)
[2018-12-30] MEDS ORDERED: ONDANSETRON ODT 4 MG TAB.RAPDIS PO ONE (23:45)
[2018-12-31 00:33] LABS: INFLUENZA A PATIENT NEGATIVE (NEGATIVE); INFLUENZA B PATIENT NEGATIVE (NEGATIVE)
[2018-12-31] MEDS ORDERED: PRED50TA PO (02:26)
--- NOTE | 2018-12-31 07:52 | RAD ---
CHEST PA LATERAL History: Cough, fever x 3 days Comparison: Two-view chest May 07, 2018. Findings: The cardiomediastinal silhouette is normal. Pulmonary vasculature is normal. The lungs are clear. No pleural effusion or pneumothorax is seen. There is no acute bone abnormality. IMPRESSION: No acute cardiopulmonary process. Electronically signed by: Aris Sanders MD (12/31/2018 7:21 AM) [id number]
== END 2018-12-31 02:44 | disposition home or self-care (01) ==
LOC: ER 23:13
DX: J40 Bronchitis, not specified as acute or chronic (principal); B34.9 Viral infection, unspecified; F84.5 Asperger's syndrome; F98.8 Other specified behavioral and emotional disorders with onset usually occurring in childhood and adolescence; F90.9 Attention-deficit hyperactivity disorder, unspecified type; F42.9 Obsessive-compulsive disorder, unspecified; K58.9 Irritable bowel syndrome, unspecified; F17.210 Nicotine dependence, cigarettes, uncomplicated
CPT/HCPCS: 71046; 87070; 87804; 87880; 94640; 99285; J7512; J7613; Q0162

== ENCOUNTER 2019-04-16 02:13 | Emergency (ER) | payer BC, OTHER ==
[~2019-04-16] VITALS: Ht 182.9 cm; Wt 89.3 kg
--- NOTE | 2019-04-16 02:36 | ED.ADGEN ---
Past History Past Medical History: Depression, IBS Additional Past Medical Histor: ADHD, ADD, Asperger's syndrome, OCD Past Surgical History: No Surgical History Smoking: Cigarettes Alcohol Use: None Drug Use: None, Other Adult General Chief Complaint Chief Complaint " I got bad dental pain.. it is mainly in these teeth here... ( 29,28, 27).. I have bad teeth.. the one in back need to come out.. but dentist said I needed to have $2,000 dollars before he would cut them out..." HPI HPI Patient is a 24 year old male who presents with above hx and complaints of dental pain. Pain is localized in teeth 20 05/27/1827. These do have findings of dental caries. Patient has multiple the dental caries in his mouth. Posterior molars appeared to be also exhibit decay.. Patient has no trismus. No adenopat hy. No obvious pointing abscess. Patient does smoke. No history immunosuppression. Review of Systems Review of Systems Constitutional: Denies fever or chills [] Eyes: Denies change in visual acuity, redness, or eye pain [] HENT: Denies nasal congestion or sore throat []complaints of dental pain Respiratory: Denies cough or shortness of breath [] Cardiovascular: No additional information not addressed in HPI [] GI: Denies abdominal pain, nausea, vomiting, bloody stools or diarrhea [] : Denies dysuria or hematuria [] Musculoskeletal: Denies back pain or joint pain [] Integument: Denies rash or skin lesions [] Neurologic: Denies headache, focal weakness or sensory changes [] Endocrine: Denies polyuria or polydipsia [] All other systems were reviewed and found to be within normal limits, except as documented in this note. Family History Family History Noncontributory Current Medications Current Medications Current Medications Medications (Trade) Dose Ordered Sig/Vicki Start Time Stop Time Status Last Admin Dose Admin Ceftriaxone Sodium (Rocephin Im) 1 gm 1X ONCE 04/16/19 02:45 04/16/19 03:10 DC 04/16/19 02:50 1 GM Ceftriaxone Sodium (Rocephin) 1 gm STK-MED ONCE 04/16/19 02:44 04/16/19 02:44 DC Ketorolac Tromethamine (Toradol Im) 60 mg STK-MED ONCE 04/16/19 02:44 04/16/19 03:10 DC Allergies Allergies Allergies Coded Allergies Type Severity Reaction Last Updated Verified No Known Drug Allergies 04/16/19 No Physical Exam Physical Exam Constitutional: Well developed, well nourished, moderate acute distress, non-t oxic appearance. [] HENT: Normocephalic, atraumatic, bilateral external ears normal, oropharynx moist, no oral exudates, nose normal. []Dental pain localized to primarily teeth 29, 20, 27. No trismus. Eyes: PERRLA, EOMI, conjunctiva normal, no discharge. [] Glasses Neck: Normal range of motion, no tenderness, supple, no stridor. [] Cardiovascular:Heart rate regular rhythm, no murmur [] Lungs & Thorax: Bilateral breath sounds equal apexes scattered wheezes auscultation [] Abdomen: Bowel sounds normal, soft, no tenderness, no masses, no pulsatile masses. [] Skin: Warm, dry, no erythema, no rash. [] Back: No tenderness, no CVA tenderness. [] Extremities: No tenderness, no cyanosis, no clubbing, ROM intact, no edema. [] Neurologic: Alert and oriented X 3, normal motor function, normal sensory function, no focal deficits noted. [] Psychologic: Affect anxious, judgement normal, mood normal. [] Current Patient Data Vital Signs Vital Signs Date Time Temp Pulse Resp B/P (MAP) Pulse Ox O2 Delivery O2 Flow Rate FiO2 04/16/19 03:11 65 20 99 04/16/19 02:20 99.2 Room Air EKG EKG [] Radiology/Procedures Radiology/Procedures [] Course & Med Decision Making Course & Med Decision Making Pertinent Labs and Imaging studies reviewed. (See chart for details) Patient take Tylenol and ibuprofen for pain. Patient take Keflex 500 mg 3 times a day. Patient to take Vicoprofen for marked discomfort. Patient encouraged follow-up with dentist because we are not fixing his underlying problems of dental decay. Patient to stop smoking. Patient return of any concerns. Patient follow-up primary care. Consider follow-up at the dental school at [place] [] Final Impression Final Impression 1. Dental Pain[]- dental caries 2. Tobacco use Dragon Disclaimer Dragon Disclaimer This electronic medical record was generated, in whole or in part, using a voice recognition dictation system. Dragon Disclaimer This chart was dictated in whole or in part using Voice Recognition software in a busy, high-work load, and often noisy Emergency Department environment. It may contain unintended and wholly unrecognized errors or omissions. Dragon Disclaimer This chart was dictated in whole or in part using Voice Recognition software in a busy, high-work load, and often noisy Emergency Department environment. It may contain unintended and wholly unrecognized errors or omissions. FAIZA CÁRDENAS MD Apr 16, 2019 02:36
[2019-04-16] MEDS ORDERED: HYDR-1179 PO (02:40)
[2019-04-16] MEDS ORDERED: CEPH-264 PO (02:40)
[2019-04-16] MEDS ORDERED: cefTRIAXone SODIUM 1 GM VIAL ONE (02:44)
[2019-04-16] MEDS ORDERED: KETOROLAC 60 MG/2 ML VIAL. IM ONE ×2 (02:44→02:45)
[2019-04-16] MEDS ORDERED: cefTRIAXone IM 1 GM VIAL IM ONE (02:45)
[2019-04-16 03:11] VITALS: BP 121/65
== END 2019-04-16 03:10 | disposition home or self-care (01) ==
LOC: ER 02:13
DX: K02.9 Dental caries, unspecified (principal); F17.210 Nicotine dependence, cigarettes, uncomplicated; K58.9 Irritable bowel syndrome, unspecified; F84.5 Asperger's syndrome; F42.8 Other obsessive-compulsive disorder; F90.9 Attention-deficit hyperactivity disorder, unspecified type
CPT/HCPCS: 96372; 99284; J0696; J1885

== ENCOUNTER 2019-05-24 01:20 | Emergency (ER) | payer OTHER ==
[~2019-05-24] VITALS: Ht 182.9 cm; Wt 91.0 kg
[~2019-05-24 01:20] MED LIST changes: +CEPH-264 PO; +HYDR-1179 PO
--- NOTE | 2019-05-24 01:40 | ED.ADGEN ---
Past History Past Medical History: Depression, IBS, Other Additional Past Medical Histor: ADHD, ADD, Asperger's syndrome, OCD Past Surgical History: Other Smoking: Cigarettes Alcohol Use: None Drug Use: None Adult General Chief Complaint Chief Complaint " ..I got these bug bites.. and they gotten red... " HPI HPI Patient is a 24 year old male who presents with above hx and complaints insect bites. Patient has several bites on left arm that have become inflamed and appeared to be cellulitic. While in upper arm is approximately 4 cm diameter area of erythema. No striations. No adenopathy. Patient does not remember his last tetanus. No recent travel or specific ill contacts. Review of Systems Review of Systems Constitutional: Denies fever or chills [] Eyes: Denies change in visual acuity, redness, or eye pain [] HENT: Denies nasal congestion or sore throat [] Respiratory: Denies cough or shortness of breath [] Cardiovascular: No additional information not addressed in HPI [] GI: Denies abdominal pain, nausea, vomiting, bloody stools or diarrhea [] : Denies dysuria or hematuria [] Musculoskeletal: Denies back pain or joint pain [] Integument: Complains of cellulitis and insect bites Neurologic: Denies headache, focal weakness or sensory changes [] Endocrine: Denies polyuria or polydipsia [] All other systems were reviewed and found to be within normal limits, except as documented in this note. Family History Family History Noncontributory Current Medications Current Medications Current Medications Medications (Trade) Dose Ordered Sig/Vicki Start Time Stop Time Status Last Admin Dose Admin Diphtheria/ Tetanus/Acell Pertussis (Boostrix) 0.5 ml ONCE ONCE 05/24/19 02:30 05/24/19 02:31 DC 05/24/19 02:13 0.5 ML Trimethoprim/ Sulfamethoxazole (Bactrim Ds) 1 tab 1X ONCE 05/24/19 02:00 05/24/19 02:01 UNV Allergies Allergies Allergies Coded Allergies Type Severity Reaction Last Updated Verified No Known Drug Allergies 04/16/19 No Physical Exam Physical Exam Constitutional: Well developed, well nourished, no acute distress, non-toxic appearance. [] HENT: Normocephalic, atraumatic, bilateral external ears normal, oropharynx moist, no oral exudates, nose normal. [] Eyes: PERRLA, EOMI, conjunctiva normal, no discharge. [] Glasses Neck: Normal range of motion, no tenderness, supple, no stridor. [] Cardiovascular:Heart rate regular rhythm, no murmur [] Lungs & Thorax: Bilateral breath sounds clear to auscultation [] Abdomen: Bowel sounds normal, soft, no tenderness, no masses, no pulsatile masses. [] Skin: Warm, dry, .. Insect bites as per history of present illness Back: No tenderness, no CVA tenderness. [] Extremities: No tenderness, no cyanosis, no clubbing, ROM intact, no edema. [] Neurologic: Alert and oriented X 3, normal motor function, normal sensory function, no focal deficits noted. [] Psychologic: Affect anxious, judgement normal, mood normal. [] Current Patient Data Vital Signs Vital Signs Date Time Temp Pulse Resp B/P (MAP) Pulse Ox O2 Delivery O2 Flow Rate FiO2 05/24/19 02:45 98.0 57 18 110/71 (84) 98 Room Air EKG EKG [] Radiology/Procedures Radiology/Procedures [] Course & Med Decision Making Course & Med Decision Making Pertinent Labs and Imaging studies reviewed. (See chart for details) Patient massage area of insect bites with Polysporin 4 times a day until healed. Patient take Bactrim DS twice a day for 7 days. Patient follow-up primary care. Patient return if any concerns. [] Final Impression Final Impression 1. Insect bite[] 2. Cellulitis Dragon Disclaimer Dragon Disclaimer This electronic medical record was generated, in whole or in part, using a voice recognition dictation system. Dragon Disclaimer This chart was dictated in whole or in part using Voice Recognition software in a busy, high-work load, and often noisy Emergency Department environment. It may contain unintended and wholly unrecognized errors or omissions. FAIZA CÁRDENAS MD May 24, 2019 01:40
[2019-05-24] MEDS ORDERED: SMZ/TMP 800/160MG TABLET. PO ONE ×2 (02:00→02:30)
[2019-05-24] MEDS ORDERED: SULF1TAB24 PO (02:02)
[2019-05-24] MEDS ORDERED: DIPHTH,PERTUSS(ACELL),TET TOX 0.5 ML DISP.SYRIN. VAX IM ONE (02:30)
[2019-05-24 02:45] VITALS: BP 110/71
== END 2019-05-24 02:46 | disposition home or self-care (01) ==
LOC: ER 01:20
DX: S40.862A Insect bite (nonvenomous) of left upper arm, initial encounter (principal); L03.114 Cellulitis of left upper limb; K58.9 Irritable bowel syndrome, unspecified; F17.210 Nicotine dependence, cigarettes, uncomplicated; W57.XXXA Bitten or stung by nonvenomous insect and other nonvenomous arthropods, initial encounter; Y93.89 Activity, other specified; Y92.89 Other specified places as the place of occurrence of the external cause; Y99.8 Other external cause status
CPT/HCPCS: 90471; 90715; 99283-25

== ENCOUNTER 2019-10-26 20:00 | Emergency (ER) | payer OTHER ==
[~2019-10-26] VITALS: Ht 182.9 cm; Wt 92.8 kg
[~2019-10-26 20:00] MED LIST changes: +SULF1TAB24 PO
[2019-10-26] MEDS ORDERED: IV RINGERS SOLUTION,LACTATED 1,000 ML IV SCH (20:40)
--- NOTE | 2019-10-26 20:40 | PHYS DOC ---
Past History Past Medical History: Depression, IBS, Other Additional Past Medical Histor: ADHD, ADD, Asperger's syndrome, OCD Past Surgical History: Other Additional Past Surgical Histo: NECK AND EYE A CHILD Smoking: Cigarettes Alcohol Use: Rarely Drug Use: None Adult General Chief Complaint Chief Complaint: GI PROBLEM.. ".. I was drinking to many beer the other day....and some when down the wrong pipe... I got to puking really hard... and I still have bad abdomen pain from it..." HPI HPI Patient is a 24 year old male who presents with above hx and complaints generalized abdomen pain after vomiting with excessive alcohol intake. Patient denies any intake of bad food. No recent travel. No significant ill contacts. Does admit to excessive alcohol use 2 days ago and vomiting with small amount of aspiration. Patient denies any history of immunosuppression. Is concerned because he still has mildly upset stomach. Review of Systems Review of Systems Constitutional: Denies fever or chills [] Eyes: Denies change in visual acuity, redness, or eye pain [] HENT: Denies nasal congestion or sore throat [] Respiratory: History of cough coughing after aspirating some beer 2 days ago Cardiovascular: No additional information not addressed in HPI [] GI: Complaints of abdominal pain, nausea, vomiting,. Denies bloody stools or diarrhea [] : Denies dysuria or hematuria [] Musculoskeletal: Denies back pain or joint pain [] Integument: Denies rash or skin lesions [] Neurologic: Denies headache, focal weakness or sensory changes [] Endocrine: Denies polyuria or polydipsia [] All other systems were reviewed and found to be within normal limits, except as documented in this note. Family History Family History Noncontributory Current Medications Current Medications See nursing for home meds Allergies Allergies Allergies Coded Allergies Type Severity Reaction Last Updated Verified No Known Drug Allergies 04/16/19 No Physical Exam Physical Exam Constitutional: Well developed, well nourished, no acute distress, non-toxic appearance. [] HENT: Normocephalic, atraumatic, bilateral external ears normal, oropharynx moist, no oral exudates, nose normal. [] Eyes: PERRLA, EOMI, conjunctiva normal, no discharge. [] Neck: Normal range of motion, no tenderness, supple, no stridor. [] Cardiovascular: Bradycardia cardiac Heart rate regular rhythm, no murmur [] Lungs & Thorax: Bilateral breath sounds apex with no rhonchi did have a few scattered wheezes on Auscultation [] Abdomen: Bowel sounds normal, soft, mild epigastric tenderness, no masses, no pulsatile masses. [No focal areas of rebound] Skin: Warm, dry, no erythema, no rash. [] Back: No tenderness, no CVA tenderness. [] Extremities: No tenderness, no cyanosis, no clubbing, ROM intact, no edema. [] Neurologic: Alert and oriented X 3, normal motor function, normal sensory function, no focal deficits noted. [] Psychologic: Affect anxious, judgement normal, mood normal. [] Current Patient Data Vital Signs Vital Signs Date Time Temp Pulse Resp B/P (MAP) Pulse Ox O2 Delivery O2 Flow Rate FiO2 10/26/19 20:25 98.0 82 20 114/48 (70) 98 Room Air EKG EKG My interpretation EKG shows a sinus bradycardia. Ventricular rate of 46. No findings acute STEMI with contralateral changes[] Radiology/Procedures Radiology/Procedures [][place] [address] IMAGING REPORT Signed PATIENT: YAS MENDEZ ACCOUNT: [id number] : 1995 LOCATION: ER AGE: 24 SEX: M EXAM STATUS: REG ER ORD. PHYSICIAN: FAIZA CÁRDENAS MD REASON: Abd. and chest pain after forceful vomiting PROCEDURE: ABDOMEN SUPINE & UPRIGHT PROCEDURE: ABDOMEN SUPINE UPRIGHT, CHEST PA LATERAL STUDY DATE: 10/26/2019 CLINICAL INDICATION / HISTORY: Abdomen and chest pain after forceful vomiting.. TECHNIQUE: Upright PA chest, supine and decubitus films of the abdomen were obtained. COMPARISON: 12/31/2018 chest x-ray FINDINGS: AP view the chest reveals the lungs to be clear. Cardiac and mediastinal silhouette are unremarkable. No free air is identified below the diaphragms. Supine and decubitus views of the abdomen reveal no dilated loops of bowel or air-fluid levels. No organomegaly is present. No destructive osseous lesions. IMPRESSION: No radiographic evidence for bowel obstruction. Electronically signed by: Susanna Hassan MD (10/26/2019 9:28 PM) [id number] DICTATED AND SIGNED BY: SUSANNA HASSAN MD DATE: 10/26/192127 CC: FAIZA CÁRDENAS MD; HASMUKH VARGHESE ~ Course & Med Decision Making Course & Med Decision Making Pertinent Labs and Imaging studies reviewed. (See chart for details) Encouraged patient to not smoke. Encouraged patient not to drink all to excess. Encouraged patient to follow-up primary care. Patient return if any concerns. If still having abdomen discomfort remain on a clear fluid diet. No solids. No milk products. Must follow-up. Take [id number] mg twice a day. Return if any concerns Impression; 1. History of excessive alcohol use 2. GERD 3. Anxiety 4. Tobacco use 5. ADHD, Asperger's [] Dragon Disclaimer Dragon Disclaimer This electronic medical record was generated, in whole or in part, using a voice recognition dictation system. Departure Departure: Disposition: 01 HOME/RESIDENCE PRIOR TO ADM Condition: STABLE Referrals: HASMUKH VARGHESE (PCP) Scripts Ranitidine Hcl (ZANTAC) 150 Mg Tablet 150 MG PO BID for gerd, GASTRITIS for 30 Days, #60 TAB Prov: FAIZA CÁRDENAS MD 10/26/19 Dragon Disclaimer This chart was dictated in whole or in part using Voice Recognition software in a busy, high-work load, and often noisy Emergency Department environment. It may contain unintended and wholly unrecognized errors or omissions. FAIZA CÁRDENAS MD Oct 26, 2019 20:40
[2019-10-26] MEDS ORDERED: ONDANSETRON PF 4 MG/2 ML VIAL. IVP ONE (20:45)
[2019-10-26] MEDS ORDERED: FAMOTIDINE 20 MG/2 ML VIAL IVP ONE (20:45)
[2019-10-26] MEDS ORDERED: MAGNESIUM HYDROXIDE 2,400 MG/30 ML ORAL.SUSP. PO ONE (20:45)
[2019-10-26 21:26] LABS: CALCIUM 8.9 mg/dL (8.5-10.1); CREATININE 0.9 mg/dL (0.7-1.3); POTASSIUM 3.7 mmol/L (3.5-5.1)
--- NOTE | 2019-10-26 21:31 | RAD ---
PROCEDURE: ABDOMEN SUPINE UPRIGHT, CHEST PA LATERAL STUDY DATE: 10/26/2019 CLINICAL INDICATION / HISTORY: Abdomen and chest pain after forceful vomiting.. TECHNIQUE: Upright PA chest, supine and decubitus films of the abdomen were obtained. COMPARISON: 12/31/2018 chest x-ray FINDINGS: AP view the chest reveals the lungs to be clear. Cardiac and mediastinal silhouette are unremarkable. No free air is identified below the diaphragms. Supine and decubitus views of the abdomen reveal no dilated loops of bowel or air-fluid levels. No organomegaly is present. No destructive osseous lesions. IMPRESSION: No radiographic evidence for bowel obstruction. Electronically signed by: Jade Hassan MD (10/26/2019 9:28 PM) [id number]
[2019-10-26 21:32] LABS: ALBUMIN 4.2 g/dL (3.4-5.0); DIRECT BILIRUBIN 0.1 mg/dL (0.0-0.2); TOTAL BILIRUBIN 0.5 mg/dL (0.2-1.0); TOTAL PROTEIN 7.2 g/dL (6.4-8.2)
[2019-10-26 21:38] LABS: BASO % 0 % (0-3); EOS # 0.3 x10^3/uL (0.0-0.7); EOS % 3 % (0-3); HEMATOCRIT 48.5 % (39.0-53.0); HEMOGLOBIN 16.8 g/dL (13.0-17.5); LYMPH # 2.4 x10^3/uL (1.0-4.8); LYMPH % 23 % (24-48); MEAN CORPUSCULAR HEMOGLOBIN 29 pg (25-35); MEAN CORPUSCULAR HGB CONC 35 g/dL (31-37); MEAN CORPUSCULAR VOLUME 83 fL (79-100); MONO # 0.9 x10^3/uL (0.0-1.1); MONO % 8 % (0-9); NEUT # 7.1 x10^3uL (1.8-7.7); NEUT % 66 % (31-73); PLATELET COUNT 229 x10^3/uL (140-400); RED BLOOD COUNT 5.85 x10^6/uL (4.30-5.70); RED CELL DISTRIBUTION WIDTH 12.7 % (11.5-14.5); WHITE BLOOD COUNT 10.7 x10^3/uL (4.0-11.0)
[2019-10-26 21:40] LABS: BARBITURATES NEG (NEG); BENZODIAZEPINES NEG (NEG); CANNABINOIDS NEG (NEG); COCAINE NEG (NEG); METHADONE NEG (NEG); OPIATES NEG (NEG); PHENCYCLIDINE NEG (NEG)
[2019-10-26 21:42] LABS: BACTERIA,URINE 0 /HPF (0-FEW); BILIRUBIN,URINE NEG (NEG); CLARITY,URINE HAZY; COLOR,URINE AMBER; GLUCOSE,URINE NEG (NEG); NITRITE,URINE NEG (NEG); RBC,URINE RARE /HPF (0-2); SQUAMOUS EPITHELIAL CELL,UR OCC /LPF; UROBILINOGEN,URINE 0.2 mg/dL (0.2 mg/dL); WBC,URINE OCC /HPF (0-4)
[2019-10-26 21:46] LABS: AMPHETAMINE/METHAMPHETAMINE NEG (NEG)
--- NOTE | 2019-10-26 22:09 | EKG ---
[address] [address] Test Date: 2019-10-26 Test Time: 21:55:13 Pat Name: YAS MENDEZ Department: Room: Gender: M Agency Cashier: : 1995 Requested By: FAIZA CÁRDENAS Order Number: [id number] Reading MD: Measurements Intervals [place] Rate: 46 P: NM: QRS: 61 QRSD: 96 T: 44 QT: 426 QTc: 377 Interpretive Statements IRREGULAR RHYTHM, NO P-WAVE FOUND OTHERWISE NORMAL ECG RI6.01 No previous ECG available for comparison
[2019-10-26] MEDS ORDERED: RANI-376 PO (23:23)
[2019-10-26 23:38] VITALS: BP 100/55
== END 2019-10-26 23:40 | disposition home or self-care (01) ==
LOC: ER 20:00
DX: F10.10 Alcohol abuse, uncomplicated (principal); K21.9 Gastro-esophageal reflux disease without esophagitis; F41.9 Anxiety disorder, unspecified; F90.8 Attention-deficit hyperactivity disorder, other type; F17.210 Nicotine dependence, cigarettes, uncomplicated
CPT/HCPCS: 36415; 71046; 74019; 80048; 80076; 80307; 81001; 82150; 82550; 83690; 84484; 85025; 85610; 85730; 93005; 96361; 96374; 96375; 99285; G0480; J2405; J3490; J7120

== ENCOUNTER 2019-11-21 10:44 | Emergency (ER) | payer OTHER ==
[~2019-11-21] VITALS: Ht 182.9 cm; Wt 93.5 kg
[~2019-11-21 10:44] MED LIST changes: +RANI-376 PO
[2019-11-21 11:33] VITALS: BP 142/82
[2019-11-21] MEDS ORDERED: DICY20TA3 PO (11:55)
[2019-11-21] MEDS ORDERED: ONDA4TAB12 PO (11:55)
--- NOTE | 2019-11-21 11:55 | PHYS DOC ---
Past History Past Medical History: Depression, IBS, Other Additional Past Medical Histor: ADHD, ADD, Asperger's syndrome, OCD Past Surgical History: Other Additional Past Surgical Histo: NECK AND EYE A CHILD Smoking: Cigarettes Alcohol Use: Rarely Drug Use: None Adult General Chief Complaint Chief Complaint: NAUSEA/VOMITING/DIARRHEA HPI HPI Patient is a 24-year-old male who presents with complaint of worsening acute on chronic diarrhea. His symptoms have been present x3 days duration. No fever chills reported. Some increased abdominal cramping. No nausea or vomiting. No medications taken prior to arrival. Patient has a presumptive diagnosis of irritable bowel syndrome. Review of Systems Review of Systems All other systems were reviewed and found to be within normal limits, except as documented in this note. Allergies Allergies Allergies Coded Allergies Type Severity Reaction Last Updated Verified No Known Drug Allergies 11/21/19 No Physical Exam Physical Exam Constitutional: Well developed, well nourished, no acute distress, non-toxic appearance. [] HENT: Normocephalic, atraumatic, bilateral external ears normal, oropharynx moist, no oral exudates, nose normal. [] Eyes: PERRLA, EOMI, conjunctiva normal, no discharge. [] Neck: Normal range of motion, no tenderness, supple, no stridor. [] Cardiovascular:Heart rate regular rhythm, no murmur [] Lungs & Thorax: Bilateral breath sounds clear to auscultation [] Abdomen: Bowel sounds normal, soft, mild generalized tenderness., no masses, no pulsatile masses. [] Skin: Warm, dry, no erythema, no rash. [] Back: No tenderness, no CVA tenderness. [] Extremities: No tenderness, no cyanosis, no clubbing, ROM intact, no edema. [] Neurologic: Alert and oriented X 3, normal motor function, normal sensory function, no focal deficits noted. [] Psychologic: Affect normal, judgement normal, mood normal. [] Current Patient Data Vital Signs Vital Signs Date Time Temp Pulse Resp B/P (MAP) Pulse Ox O2 Delivery O2 Flow Rate FiO2 11/21/19 11:33 98.6 90 18 142/82 (102) 98 Room Air EKG EKG [] Radiology/Procedures Radiology/Procedures [] Course & Med Decision Making Course & Med Decision Making Pertinent Labs and Imaging studies reviewed. (See chart for details) Patient seen for acute on chronic diarrhea. Able to tolerate oral intake. Will check labs and give Zofran and Bentyl to help calm the stomach. Labs stable. Will discharge home. [place] Disclaimer Maura Disclaimer This electronic medical record was generated, in whole or in part, using a voice recognition dictation system. Departure Departure: Impression: Primary Impression: Diarrhea Disposition: HOME, SELF-CARE Condition: STABLE Referrals: HASMUKH VARGHESE (PCP) Please follow-up as needed. Scripts Dicyclomine Hcl (DICYCLOMINE HCL) 20 Mg Tablet 1 TAB PO QID for Abdominal cramping, #20 TAB Prov: VICKIE LUU DO 11/21/19 Ondansetron (ONDANSETRON ODT) 4 Mg Tab.rapdis 4 MG PO Q6HRS for Nausea/Vomiting, #15 TAB Prov: VICKIE LUU DO 11/21/19 VICKIE LUU DO Nov 21, 2019 11:55
[2019-11-21] MEDS ORDERED: DICYCLOMINE HCL 20 MG TABLET ONE (12:01)
[2019-11-21 12:14] LABS: BASO % 0 % (0-3); EOS # 0.3 x10^3/uL (0.0-0.7); EOS % 3 % (0-3); HEMATOCRIT 49.6 % (39.0-53.0); HEMOGLOBIN 17.3 g/dL (13.0-17.5); LYMPH # 3.2 x10^3/uL (1.0-4.8); LYMPH % 29 % (24-48); MEAN CORPUSCULAR HEMOGLOBIN 29 pg (25-35); MEAN CORPUSCULAR HGB CONC 35 g/dL (31-37); MEAN CORPUSCULAR VOLUME 83 fL (79-100); MONO # 0.8 x10^3/uL (0.0-1.1); MONO % 7 % (0-9); NEUT # 6.8 x10^3uL (1.8-7.7); NEUT % 61 % (31-73); PLATELET COUNT 221 x10^3/uL (140-400); RED CELL DISTRIBUTION WIDTH 12.6 % (11.5-14.5); WHITE BLOOD COUNT 11.2 x10^3/uL (4.0-11.0)
[2019-11-21] MEDS ORDERED: ONDANSETRON ODT 4 MG TAB.RAPDIS PO ONE (12:15)
[2019-11-21] MEDS ORDERED: DICYCLOMINE HCL 20 MG TABLET PO ONE (12:15)
[2019-11-21 12:22] LABS: CALCIUM 8.8 mg/dL (8.5-10.1); CREATININE 0.9 mg/dL (0.7-1.3); POTASSIUM 3.6 mmol/L (3.5-5.1)
[2019-11-21 12:28] LABS: ALBUMIN 3.9 g/dL (3.4-5.0); ALBUMIN/GLOBULIN RATIO 1.2 (1.0-1.7); TOTAL BILIRUBIN 0.4 mg/dL (0.2-1.0); TOTAL PROTEIN 7.2 g/dL (6.4-8.2)
== END 2019-11-21 13:01 | disposition home or self-care (01) ==
LOC: ER 10:44
DX: R19.7 Diarrhea, unspecified (principal); K58.9 Irritable bowel syndrome, unspecified; F17.210 Nicotine dependence, cigarettes, uncomplicated
CPT/HCPCS: 36415; 80053; 83690; 85025; 99283; Q0162